=== PATIENT | female | born 1930 | race Caucasian/White ===

== ENCOUNTER 2016-12-16 14:42 | Emergency (ER) | payer MEDICARE, MEDICAID ==
[2016-12-16 14:43] VITALS: BMI 25.4
[2016-12-16 14:52] VITALS: BP 168/78; PULSE 86; RESP 16; TEMP 97.9; O2SAT 98
[2016-12-16 15:36] LABS: BASO # 0.1 K/uL (0.0-0.2); BASO % 0.9 % (0.0-2.0); EOS # 0.1 K/uL (0.0-0.7); EOS % 1.2 % (0.0-4.0); HEMATOCRIT 37.2 % (34.0-47.0); LYMPH # 1.8 K/uL (1.0-4.3); LYMPH % 21.2 % (20.0-40.0); MEAN CELL VOLUME 88.6 fl (81.0-99.0); MEAN CORPUSCULAR HEMOGLOBIN 29.9 pg (27.0-31.0); MEAN CORPUSCULAR HGB CONC 33.7 g/dL (33.0-37.0); MEAN PLATELET VOLUME 8.6 fl (7.2-11.7); MONO # 0.6 K/uL (0.0-0.8); MONO % 7.6 % (0.0-10.0); NEUT # 5.7 K/uL (1.8-7.0); NEUT % 69.1 % (50.0-75.0); WHITE BLOOD COUNT 8.3 K/uL (4.8-10.8)
--- NOTE | 2016-12-16 15:44 | ED PDOC ---
Hyperglycemia/Hypoglycemia Time Seen by Provider: 12/16/16 14:57 Chief Complaint (Nursing): High Blood Sugar Chief Complaint (Provider): High Blood Sugar History Per: Patient History/Exam Limitations: no limitations Onset/Duration Of Symptoms: Days (x2 days) Current Symptoms Are (Timing): Still Present : The patient does not have any of the infectious symptoms listed except for those marked. Additional Complaint(s): 86 y/o female with a past medical history of diabetes mellitus, hypertension, and mild dementia presents to the emergency department with a complaint of feeling tired and thirst x2 days. Patient lives alone and has a home health aid that works during the weekdays as well as attending adult day care. As per history from health aid, when patient is home alone during the weekends she does not administer her own insulin so there is a questionable compliance with medications due to history of patient. Denies any other complaints. PMD: Dr. Stan Bar MD ([place]) Past Medical History Reviewed: Historical Data, Nursing Documentation, Vital Signs Vital Signs: Last Vital Signs Temp 97.9 F 12/16/16 14:49 Pulse 86 12/16/16 14:49 Resp 16 12/16/16 14:49 BP 168/78 H 12/16/16 14:49 Pulse Ox 98 12/16/16 14:49 - Medical History PMH: Anxiety, Arthritis, Depression, Diabetes, Gastritis, HTN, Hypercholesterolemia, Osteoporosis Denies: CHF, COPD, HIV, Hypothyroidism, Rheumatoid Arthritis - Surgical History Surgical History: No Surg Hx - Family History Family History: States: Unknown Family Hx - Social History Current smoker - smoking cessation education provided: No Alcohol: None Drugs: Denies - Immunization History Hx Tetanus Toxoid Vaccination: No Hx Influenza Vaccination: Yes Hx Pneumococcal Vaccination: No (NOT SURE) - Home Medications Home Medications: Ambulatory Orders Medication Instructions Recorded Nitroglycerin [Nitrostat] 0.4 mg PO Q5MIN PRN 07/09/14 Escitalopram [Lexapro] 5 mg PO DAILY #0 tab 07/13/14 Primidone [Mysoline] 50 mg PO BID #0 tab 07/13/14 Amlodipine Besylate 10 mg PO DAILY 11/06/14 Aspirin [Aspirin EC] 81 mg PO DAILY 11/06/14 Glyburide 5 mg PO DAILY 11/06/14 Hydrochlorothiazide 25 mg PO DAILY 11/06/14 Metformin HCl [Metformin HCl] 850 mg PO BID 11/06/14 Omeprazole [PrilOSEC] 1 tab PO DAILY 11/06/14 Oxycodone HCl/Acetaminophen 1 tab PO Q4 PRN #10 tab 11/06/14 [Percocet 325 mg-5 mg] Primidone 50 mg PO BID 11/06/14 Valsartan [Diovan] 80 mg PO DAILY 11/06/14 Alendronate [Fosamax] 70 mg PO QWK 01/20/15 Aspirin [Aspirin EC] 81 mg PO DAILY 01/20/15 Atorvastatin [Lipitor] 10 mg PO HS 01/20/15 Glyburide 5 mg PO DAILY 01/20/15 Metformin Hydrochloride [Metformin] 500 mg PO BID 01/20/15 Metoprolol Succinate [Toprol XL] 25 mg PO DAILY 01/20/15 Omeprazole [PrilOSEC] 40 mg PO DAILY 01/20/15 hydrALAZINE [Apresoline] 25 mg PO TID #0 tab 01/24/15 Insulin Aspart, Recombinant 1 - 5 unit SC ACHS 08/15/15 [Novolog] Insulin Detemir [Levemir] 10 unit SC HS 08/15/15 Valsartan [Diovan] 320 mg PO DAILY 08/15/15 amLODIPine [Norvasc] 5 mg PO DAILY 08/15/15 Acetaminophen [Tylenol 325mg tab] 650 mg PO Q4 PRN #0 tab 08/31/15 Benzocaine/Menthol [Cepacol Sore 1 [place] PO Q2 PRN #0 gust[place] 08/31/15 Throat] Gabapentin [Neurontin] 300 mg PO BID #0 cap 08/31/15 Acetaminophen with Codeine 1 each PO Q6 PRN #8 tablet 10/30/15 [Tylenol with Codeine #3 Tablet] Ibuprofen [Motrin] 1 tab PO Q8 PRN #10 tab 10/30/15 - Allergies Allergies/Adverse Reactions: Allergies Allergy/AdvReac Type Severity Reaction Status Date / Time No Known Allergies Allergy Verified 07/09/14 12:25 Review of Systems ROS Statement: Except As Marked, All Systems Reviewed And Found Negative Constitutional: Positive for: Other (Tired and thristy) Physical Exam - Reviewed Nursing Documentation Reviewed: Yes Vital Signs Reviewed: Yes - Physical Exam Appears: Positive for: Non-toxic, No Acute Distress Head Exam: Positive for: ATRAUMATIC, NORMOCEPHALIC Skin: Positive for: Normal Color, Warm, Dry ENT: Positive for: Other (Dry mucous membranes). Negative for: Pharyngeal Erythema Neck: Positive for: Normal, Supple Cardiovascular/Chest: Positive for: Regular Rate, Rhythm. Negative for: Murmur Respiratory: Positive for: Normal Breath Sounds. Negative for: Accessory Muscle Use, Respiratory Distress Gastrointestinal/Abdominal: Positive for: Normal Exam, Soft. Negative for: Tenderness Extremity: Positive for: Normal ROM. Negative for: Pedal Edema Neurologic/Psych: Positive for: Alert, Oriented - Laboratory Results Result Diagrams: 12/16/16 15:20 12/16/16 15:20 - ECG O2 Sat by Pulse Oximetry: 98 (RA) Pulse Ox Interpretation: Normal Medical Decision Making Medical Decision Making: Time: 14:57 Initial impression: Hyperglycemia Initial plan: --VBG Shock Panel --Electrocardiogram Stat --COMP Metabolic Panel --Magnesium Stat --Phosphorous Stat --Troponin I Stat --ED Urine Dipstick (POC) --EKG-ED (EDNURTX) Stat --CBC w/ differential --Partial Thromboplastin Time (COAG) --Prothrombin Time (COAG) --Professional Architect CONT --IV Insertion --Revaluation Time: 15:30 --Discussed with Dr. Stan Lester from [place] who reports patient typically has hyperglycemia after weekends, around 300 mg/dL but today patient showed a number of 400 mg/dL due to not using insulin. In addition pt went to [facility] [place] and it is not known if she was taking meds appropirately there either. --Advises to treat with insulin. If problem improves, patient can be discharged and will follow up with her tomorrow. 1800 Pt's hyperglycemia is improved post insulin. Labs c/w hyperglycemia, but not DKA. DW findings and plan of care w patient. strict diabetic diet and pt to continue insulin as prescribed. Time: 17:33 Accucheck: 437 --Insulin Humalog 10 units SC Stat Scribe Attestation: Documented by Jen Rouse, acting as a scribe for Elvie Smith MD. Provider Scribe Attestation: All medical record entries made by the Scribe were at my direction and personally dictated by me. I have reviewed the chart and agree that the record accurately reflects my personal performance of the history, physical exam, medical decision making, and the department course for this patient. I have also personally directed, reviewed, and agree with the discharge instructions and disposition. Disposition - Clinical Impression Clinical Impression: Hyperglycemia - Disposition Referrals: Stan Lester, HAKAN, [employer]OMB[employer] DEVELOPER [Advanced Practice Nurse] - 12/17/16 ([facility]) Disposition: Routine/Home Disposition Time: 18:00 Condition: IMPROVED Instructions: Diabetic Hyperglycemia (ED) Print Language: BAHAMIAN
[2016-12-16 15:52] LABS: ALB/GLOB RATIO 1.5 (1.0-2.1); ALKALINE PHOSPHATASE 124 U/L (38-126); ALT/SGPT 35 U/L (9-52); AST/SGOT 28 U/L (14-36); BILIRUBIN,TOTAL 0.5 mg/dl (0.2-1.3); BLOOD UREA NITROGEN 27 mg/dl (7-17); CALCIUM 9.2 mg/dL (8.4-10.2); CARBON DIOXIDE 19 mmol/L (22-30); CHLORIDE 99 mmol/L (98-107); GFR AFRICAN-AMERICAN > 60; MAGNESIUM 1.7 MG/DL (1.6-2.3); PHOSPHOROUS 3.7 mg/dl (2.5-4.5); POTASSIUM 3.9 MMOL/L (3.6-5.0); SODIUM 133 mmol/l (132-148); TOTAL PROTEIN 7.1 G/DL (6.3-8.2)
[2016-12-16] MEDS ORDERED: Insulin Regular 100 units/ml SC STA (15:56)
[2016-12-16 15:57] LABS: PARTIAL THROMBOPLASTIN TIME 25.1 SECONDS (23.3-32.5)
[2016-12-16 15:57] LABS: VENOUS BLOOD GAS BASE EXCESS -4.7 mmol/L (0.0-2.0); VENOUS BLOOD GAS PCO2 37 mmHg (40-60); VENOUS BLOOD PH 7.35 (7.32-7.43)
[2016-12-16 15:58] LABS: GLUCOSE,RANDOM 440 mg/dL (65-105)
[2016-12-16] MEDS ORDERED: Insulin Regular 100 units/ml ONE (16:33)
[2016-12-16] MEDS ORDERED: Insulin Regular 100 units/ml IV STA (17:33)
--- NOTE | 2016-12-20 19:17 | CARD ---
APPROVED REPORT EKG Measurement Heart [id number] <Conclusion> Normal sinus rhythm Normal ECG
== END 2016-12-16 19:00 | disposition home or self-care (01) ==
LOC: H.ER 14:42
DX: E11.65 Type 2 diabetes mellitus with hyperglycemia (principal); E78.00 Pure hypercholesterolemia, unspecified; I10 Essential (primary) hypertension; M81.0 Age-related osteoporosis without current pathological fracture; Z79.4 Long term (current) use of insulin; Z79.82 Long term (current) use of aspirin